=== PATIENT | female | born 1965 | race Caucasian/White ===

== ENCOUNTER 2017-03-20 10:20 | Observation (INO) | payer SELFPAY ==
[~2017-03-20] VITALS: Ht 158.8 cm; Wt 75.8 kg
[2017-03-20 11:41] LABS: HEMATOCRIT 41.1 % (36.0-46.0); MCH 28.9 PG (29.0-34.0); MCHC 33.1 G/DL (30.0-36.0); MCV 87.3 FL (83-99); MEAN PLAT.VOLUME 9.1 uM^3 (9.5-12.4); PLATELET COUNT 251 K/uL (156-360); RBC DIS.WIDTH-CV 12.7 % (11.8-14.6); RBC DIS.WIDTH-SD 40.6 % (39-53); RED BLOOD COUNT 4.71 M/uL (3.80-5.20); WHITE BLOOD COUNT 12.1 K/uL (4.1-10.2)
[2017-03-20 11:49] LABS: CHLORIDE 108 mEq/L (99-109); SODIUM 143 mEq/L (136-147)
[2017-03-20 11:52] LABS: GLUCOSE 107 mg/dL (70-99)
[2017-03-20 11:53] LABS: ANION GAP 11 MEQ/L (2-14); TOTAL BILIRUBIN 0.4 mg/dL (0.0-1.0)
[2017-03-20 11:55] LABS: ALKALINE PHOSPHATASE 86 IU/L (3-129); GFR ESTIMATE (CALCULATED) > 59 mL/min/
[2017-03-20 11:56] LABS: UREA NITROGEN (BUN) 14 mg/dL (9-23)
[2017-03-20 12:01] LABS: TROP-I INTERPRETATION NEGATIVE; TROPONIN-I < 0.01 ng/mL (0.0-0.30)
[2017-03-20] MEDS ORDERED: LEVOTHYROXINE88 MCG PO (14:30)
[2017-03-20 14:58] VITALS: BP 136/69
[2017-03-20 18:25] LABS: TROP-I INTERPRETATION NEGATIVE; TROPONIN-I < 0.01 ng/mL (0.0-0.30)
[2017-03-20 23:05] LABS: ADD MIUA? YES; BILIRUBIN NEGATIVE; BLOOD NEGATIVE; COLOR STRAW ((YELLOW)); GLUCOSE (STRIP) NEGATIVE; KETONES NEGATIVE; LEUKOCYTES MODERATE; NITRITE NEGATIVE; PROTEIN (STRIP) NEGATIVE; SPECIFIC GRAVITY 1.005 (1.000-1.030); UROBILINOGEN 0.2 MG/DL (0.2-1.0)
[2017-03-20 23:12] LABS: BACTERIA 1+ /HPF; EPITHELIAL CELLS NONE SEEN /HPF; MUCUS NONE SEEN /LPF; RED BLOOD CELLS 0-5 /HPF (0-5)
[2017-03-20 23:46] LABS: TROP-I INTERPRETATION NEGATIVE; TROPONIN-I < 0.01 ng/mL (0.0-0.30)
[2017-03-21 00:28] VITALS: BP 119/69
[2017-03-21 04:36] VITALS: BP 124/60
[2017-03-21 07:52] VITALS: BP 130/82
[2017-03-21] MEDS ORDERED: AMOX TR-K CLV1 EAC4 PO (10:47)
[2017-03-21 11:13] VITALS: BP 141/78
[2017-03-21 14:06] LABS: Estimated Average Glucose 117 mg/dL (70-123); HEMOGLOBIN A1c (GLYCOHEMOGLOB) 5.7 % HGB (Below 5.7)
== END 2017-03-21 11:51 | disposition home or self-care (01) ==
LOC: EME 10:20 → 5WEST 13:52 → EDOF 13:52 → ENRESERV 14:02 → EDOF 14:33 → 5WEST 14:45 → ENPENDDIS 03-21 → 5WEST 03-21 11:51
PROVIDERS: Emergency Medicine; Physician Assistant
DX: E86.0 Dehydration (principal); N39.0 Urinary tract infection, site not specified; E03.9 Hypothyroidism, unspecified; R55 Syncope and collapse; R61 Generalized hyperhidrosis; R01.1 Cardiac murmur, unspecified; Z85.820 Personal history of malignant melanoma of skin; Z82.49 Family history of ischemic heart disease and other diseases of the circulatory system; Z83.3 Family history of diabetes mellitus; Z82.3 Family history of stroke; Z83.49 Family history of other endocrine, nutritional and metabolic diseases
CPT/HCPCS: 71020; 80048; 80053; 81003; 83036; 84484; 85027; 87077; 87086; 87186; 93005; 99281; 99285; G0378; J7030